=== PATIENT | female | born 1940 | race Caucasian/White ===

== ENCOUNTER 2017-07-05 17:09 | Emergency (ER) | payer OTHER ==
[~2017-07-05] VITALS: Ht 149.9 cm; Wt 47.5 kg
[~2017-07-05 17:09] MED LIST: ALTACE10 MG PO; ALTACE5 M1; CIPRO500 MG PO; CIPROFLOXACIN500 M1 PO; FLAGYL500 MG PO; GLUCOSA-CHOND-1 EACH PO; HYDROCODON-ACE1 EACH; LOMOTIL TABLET1 EACH PO; MELOXICAM7.5 MG PO; MIRALAX255 GM PO; NORCO 5-325 TA1 EACH PO; PEPCID20 MG PO; PREDNISONE 10 M10 MG PO
[2017-07-05] MEDS ORDERED: IBUPROFEN 400400 M2 PO (17:16)
[2017-07-05 17:54] LABS: ABSOLUTE BASOPHILS 0.1 thou/uL (0.0-0.2); ABSOLUTE EOSINOPHILS 0.2 thou/uL (0.0-0.7); ABSOLUTE LYMPHOCYTES 1.9 thou/uL (0.8-5.3); ABSOLUTE MONOCYTES 0.5 thou/uL (0.0-1.2); ABSOLUTE NEUTROPHILS 11.4 thou/uL (1.6-8.1); EOSINOPHILS 1.7 %; HEMATOCRIT 40.4 % (37.0-47.0); HEMOGLOBIN 12.9 gm/dL (12.0-15.0); LYMPHOCYTES 13.1 %; MCHC 31.9 g/dL (28.0-37.0); MCV 84.8 fL (80.0-100.0); MONOCYTES 3.5 %; MPV 8.1 fl. (7.2-11.1); NUCLEATED RBCS 0 /100WBC; PLATELET COUNT* 226 thou/uL (150-400); POLYS 80.7 %; RBC 4.77 mil/uL (4.20-5.00); WBC 14.2 thou/uL (4.0-11.0)
[2017-07-05 18:40] LABS: PLATELET ESTIMATE ADEQUATE
[2017-07-05 18:41] LABS: CLUMPED PLTS FEW
[2017-07-05 19:01] LABS: ALBUMIN 3.1 g/dL (3.4-5.0); ALKALINE PHOSPHATASE 298 U/L (46-116); ANION GAP 11 mmol/L (7-16); BUN 14 mg/dL (7-18); CALCIUM 8.5 mg/dL (8.5-10.1); CHLORIDE 107 mmol/L (98-107); CO2 25 mmol/L (21-32); GLUCOSE 114 mg/dL (70-99); LIPASE 119 U/L (73-393); POTASSIUM 3.8 mmol/L (3.5-5.1); SGOT 24 U/L (15-37); SGPT 16 U/L (30-65); SODIUM 143 mmol/L (136-145); TOTAL BILIRUBIN 0.4 mg/dL (<0.1-1.0); TOTAL PROTEIN 7.4 g/dL (6.4-8.2); TROPONIN-I LEVEL <0.06 ng/mL (<0.06)
[2017-07-05 21:03] LABS: URINE BLOOD 1+ (Negative); URINE CLARITY CLEAR; URINE COLOR DARK YELLOW; URINE GLUCOSE-RANDOM NEGATIVE (Negative); URINE KETONES NEGATIVE (Negative); URINE NITRITE-REFLEX NEGATIVE (Negative); URINE PROTEIN TRACE (Negative); URINE UROBILINOGEN 0.2 E.U./dl (0.2-1.0)
[2017-07-05 21:04] LABS: URINE BILIRUBIN 1+ (Negative); URINE LEUKOCYTES-REFLEX 2+ (Negative)
[2017-07-05 21:05] LABS: ICTOTEST (BILI CONFIRMATORY) Negative (Negative)
[2017-07-05] MEDS ORDERED: LEVAQUIN 500 M500 M2 PO (21:09)
[2017-07-05] MEDS ORDERED: LOPERAMIDE 2 MG2 M1 PO (21:10)
[2017-07-05 21:19] LABS: BACTERIA-REFLEX >30 Many /HPF (None Seen); COARSE GRANULAR CASTS 0-3 Few /LPF (None Seen); CRYSTALS None Seen /LPF (None Seen); FINE GRANULAR CASTS 0-3 Few /LPF (None Seen); HYALINE CASTS 0-3 Few /LPF (None Seen); MUCUS 4-6 Moderate strn/LPF (None Seen); SQUAMOUS 0-3 Few /LPF (0-3); URINE WBC-REFLEX >25 Many /HPF (0-5); WBC CLUMPS Moderate (None Seen)
[2017-07-05] MEDS ORDERED: ZOFRAN ODT4 MG PO (21:21)
[2017-07-05 22:00] VITALS: BP 118/52
== END 2017-07-05 22:03 | disposition home or self-care (01) ==
LOC: M.ERS 17:09
PROVIDERS: Physician Assistant
DX: N39.0 Urinary tract infection, site not specified (principal); R19.7 Diarrhea, unspecified; I10 Essential (primary) hypertension; Z96.653 Presence of artificial knee joint, bilateral; Z88.0 Allergy status to penicillin; Z88.1 Allergy status to other antibiotic agents; Z88.8 Allergy status to other drugs, medicaments and biological substances; Z91.041 Radiographic dye allergy status

== ENCOUNTER 2017-11-22 15:15 | Emergency (ER) | payer OTHER ==
[~2017-11-22] VITALS: Ht 149.9 cm; Wt 43.1 kg
[~2017-11-22 15:15] MED LIST changes: +IBUPROFEN 400400 M2 PO; +LEVAQUIN 500 M500 M2 PO; +LOPERAMIDE 2 MG2 M1 PO; +ZOFRAN ODT4 MG PO
[2017-11-22] MEDS ORDERED: ZITHROMAX TRI-500 MG PO (15:37)
[2017-11-22] MEDS ORDERED: EYE DROP15 ML OPHTHALMIC (15:38)
[2017-11-22] MEDS ORDERED: CLEOCIN HCL300 MG PO (17:31)
[2017-11-22 17:39] VITALS: BP 176/89
== END 2017-11-22 17:39 | disposition home or self-care (01) ==
LOC: M.ERS 15:15
DX: S02.2XXA Fracture of nasal bones, initial encounter for closed fracture (principal); I10 Essential (primary) hypertension; Z96.653 Presence of artificial knee joint, bilateral; Z88.2 Allergy status to sulfonamides; Z91.041 Radiographic dye allergy status; Z88.0 Allergy status to penicillin; Z88.8 Allergy status to other drugs, medicaments and biological substances; W01.0XXA Fall on same level from slipping, tripping and stumbling without subsequent striking against object, initial encounter; Y93.89 Activity, other specified; Y92.89 Other specified places as the place of occurrence of the external cause; Y99.8 Other external cause status

== ENCOUNTER 2018-07-27 21:18 | Emergency (ER) | payer OTHER ==
[~2018-07-27] VITALS: Ht 149.9 cm; Wt 42.6 kg
[~2018-07-27 21:18] MED LIST changes: +CLEOCIN HCL300 MG PO; +EYE DROP15 ML OPHTHALMIC; +ZITHROMAX TRI-500 MG PO
[2018-07-27] MEDS ORDERED: VIBRAMYCIN50 MG/5 ML PO (21:55)
[2018-07-27 22:35] VITALS: BP 106/70
== END 2018-07-27 22:37 | disposition home or self-care (01) ==
LOC: M.ERS 21:18
DX: L03.116 Cellulitis of left lower limb (principal); I10 Essential (primary) hypertension; Z96.653 Presence of artificial knee joint, bilateral; Z88.2 Allergy status to sulfonamides; Z88.0 Allergy status to penicillin; Z88.8 Allergy status to other drugs, medicaments and biological substances

== ENCOUNTER 2018-11-12 13:43 | Emergency (ER) | payer OTHER ==
[~2018-11-12] VITALS: Ht 149.9 cm; Wt 43.5 kg
[~2018-11-12 13:43] MED LIST changes: +COLACE100 MG PO; +HYDROCODON-ACE1 EAC7 PO; +MICONAZOLE NITR45 GM TOP; +MINOCIN50 MG PO; +MIRALAX17 GM PO; +PERCOCET PO; +TYLENOL325 MG PO; +VIBRAMYCIN50 MG/5 ML PO
[2018-11-12 15:16] VITALS: BP 123/78
== END 2018-11-12 15:17 | disposition home or self-care (01) ==
LOC: M.ERS 13:43
DX: L03.116 Cellulitis of left lower limb (principal); I10 Essential (primary) hypertension; Z96.653 Presence of artificial knee joint, bilateral; Z98.49 Cataract extraction status, unspecified eye; Z88.1 Allergy status to other antibiotic agents; Z88.0 Allergy status to penicillin; Z88.2 Allergy status to sulfonamides; Z91.040 Latex allergy status; Z91.041 Radiographic dye allergy status; Z91.048 Other nonmedicinal substance allergy status; Z88.8 Allergy status to other drugs, medicaments and biological substances

== ENCOUNTER 2019-08-06 19:47 | Emergency (ER) | payer OTHER ==
[~2019-08-06] VITALS: Ht 147.3 cm; Wt 38.6 kg
[~2019-08-06 19:47] MED LIST changes: +TRIPLE ANTIBI28.4 G2 TOP; +[UNRECOGNIZED DRUG - OTHER] PO
[2019-08-06] MEDS ORDERED: NORCO 5-325 TA1 EAC1 PO (20:16)
[2019-08-06 21:02] VITALS: BP 130/69
== END 2019-08-06 21:03 | disposition home or self-care (01) ==
LOC: M.ERS 19:47
DX: S51.811A Laceration without foreign body of right forearm, initial encounter (principal); S51.812A Laceration without foreign body of left forearm, initial encounter; I10 Essential (primary) hypertension; Z96.653 Presence of artificial knee joint, bilateral; Z91.040 Latex allergy status; Z88.0 Allergy status to penicillin; Z88.1 Allergy status to other antibiotic agents; Z88.2 Allergy status to sulfonamides; Z88.8 Allergy status to other drugs, medicaments and biological substances; V89.2XXA Person injured in unspecified motor-vehicle accident, traffic, initial encounter; Y93.89 Activity, other specified; Y92.89 Other specified places as the place of occurrence of the external cause; Y99.8 Other external cause status

== ENCOUNTER 2019-11-11 15:15 | Emergency (ER) | payer OTHER ==
[~2019-11-11] VITALS: Ht 149.9 cm; Wt 43.1 kg
[~2019-11-11 15:15] MED LIST changes: +NORCO 5-325 TA1 EAC1 PO
[2019-11-11 17:20] LABS: URINE BILIRUBIN NEGATIVE (Negative); URINE BLOOD 3+ (Negative); URINE CLARITY SL HAZY; URINE COLOR YELLOW; URINE GLUCOSE-RANDOM NEGATIVE (Negative); URINE KETONES NEGATIVE (Negative); URINE LEUKOCYTES-REFLEX 2+ (Negative); URINE NITRITE-REFLEX POSITIVE (Negative); URINE PROTEIN 2+ (Negative); URINE SPECIFIC GRAVITY 1.025 (1.005-1.030)
[2019-11-11 17:27] LABS: BACTERIA-REFLEX >30 Many /HPF (None Seen); URINE WBC-REFLEX >25 Many /HPF (0-5)
[2019-11-11 17:28] LABS: MUCUS 0-3 Light strn/LPF (None Seen)
[2019-11-11 17:29] LABS: SQUAMOUS 4-10 Moderate /LPF (0-3); WBC CLUMPS Few (None Seen)
[2019-11-11 17:33] LABS: CRYSTALS None Seen /LPF (None Seen); HYALINE CASTS 0-3 Few /LPF (None Seen); URINE RBC 3-10 Few /HPF (0-2)
[2019-11-11] MEDS ORDERED: MACROBID 100 M100 M1 PO (17:43)
[2019-11-11 18:08] VITALS: BP 134/85
== END 2019-11-11 18:09 | disposition home or self-care (01) ==
LOC: M.ERS 15:15
PROVIDERS: Personal Emergency Response Attendant
DX: Z46.6 Encounter for fitting and adjustment of urinary device (principal); I10 Essential (primary) hypertension; Z91.040 Latex allergy status; Z88.1 Allergy status to other antibiotic agents; Z88.0 Allergy status to penicillin; Z88.2 Allergy status to sulfonamides; Z88.8 Allergy status to other drugs, medicaments and biological substances; Z96.653 Presence of artificial knee joint, bilateral

== ENCOUNTER 2020-10-24 15:02 | Observation (INO) | payer OTHER ==
[~2020-10-24] VITALS: Ht 149.9 cm; Wt 43.1 kg
[~2020-10-24 15:02] MED LIST changes: +BACITRACIN ZINC14 GM TOP; +KEFLEX500 M1 PO; +LMX 430 GM TOP; +MACROBID 100 M100 M1 PO; +NORCO 5-325 TA1 EAC2 PO; +PLAVIX 75 MG TA75 M1 PO; +TRAMADOL 50 MG50 MG PO; +TRIAMCINOLONE A80 GM TOP
[2020-10-24 15:10] VITALS: BP 103/56
[2020-10-24] MEDS ORDERED: VAZALORE81 MG PO (15:14)
[2020-10-24 16:45] LABS: ABSOLUTE LYMPHOCYTES 0.7 thou/uL (0.8-5.3); ABSOLUTE MONOCYTES 0.3 thou/uL (0.0-1.2); BASOPHILS 0.4 %; HEMATOCRIT 41.6 % (37.0-47.0); HEMOGLOBIN 13.1 gm/dL (12.0-15.0); LYMPHOCYTES 18.1 %; MCH 27.3 pg (26.0-34.0); MCHC 31.4 g/dL (28.0-37.0); MCV 86.9 fL (80.0-100.0); MONOCYTES 7.5 %; MPV 7.5 fl. (7.2-11.1); NUCLEATED RBCS 0 /100WBC; PLATELET COUNT* 118 thou/uL (150-400); RBC 4.79 mil/uL (4.20-5.00); RDW-CV 19.3 % (10.5-14.5)
[2020-10-24 16:59] LABS: CALCIUM 7.9 mg/dL (8.5-10.1); CREATININE 0.8 mg/dL (0.6-1.3)
[2020-10-24 17:03] LABS: ALBUMIN 3.4 g/dL (3.4-5.0); MAGNESIUM 1.9 mg/dL (1.8-2.4); POTASSIUM 3.5 mmol/L (3.5-5.1); TOTAL BILIRUBIN 0.4 mg/dL (<0.1-1.0); TOTAL PROTEIN 6.9 g/dL (6.4-8.2)
--- NOTE | 2020-10-24 17:14 | EKG ---
[place] [address] ELECTROCARDIOGRAM REPORT Name: JUANA ANN Room: [facility]#: [id number] Admission: 10/24/20 Attend Phys: Discharge: Date of : 40 Date of Service: 10/24/20 1637 Report #: [id number] THIS REPORT FOR: //name// [facility] ED Test Date: 2020-10-24 Test Time: 16:37:01 Pat Name: JUANA ANN Department: Room: Gender: Saw Cleaner: : 1940 Requested By: Maggie Harding Order Number: [id number] MD: Mook Pham Measurements Intervals [place] Rate: 88 P: 0 [place]: 173 QRS: 164 QRSD: 130 T: -4 QT: 399 QTc: 483 Interpretive Statements Sinus rhythm Right bundle branch block with right axis deviation Lateral infarct, age indeterminate cannot be excluded Compared to ECG 09/22/2014 19:48:34 Electronically Signed On 10-24-2020 17:14:05 CDT by Mook Pham [email or web address] <ELECTRONICALLY SIGNED> By: Mook Pham MD, FACC 10/24/20 1714 1637 1637 Mook Pham MD, [facility] /EPI
[2020-10-24 19:25] LABS: URINE BILIRUBIN NEGATIVE (Negative); URINE BLOOD 1+ (Negative); URINE CLARITY CLEAR; URINE COLOR YELLOW; URINE GLUCOSE-RANDOM NEGATIVE (Negative); URINE KETONES 2+ (Negative); URINE NITRITE-REFLEX NEGATIVE (Negative); URINE PROTEIN 1+ (Negative); URINE SPECIFIC GRAVITY 1.025 (1.005-1.030); URINE UROBILINOGEN 0.2 E.U./dl (0.2-1.0)
[2020-10-24 19:29] LABS: URINE LEUKOCYTES-REFLEX 2+ (Negative)
[2020-10-24 19:30] LABS: BACTERIA-REFLEX 1-9 Few /HPF (None Seen); CASTS None Seen /LPF (None Seen); CRYSTALS None Seen /LPF (None Seen); MUCUS 0-3 Light strn/LPF (None Seen); SQUAMOUS 4-10 Moderate /LPF (0-3); URINE RBC 0-2 Rare /HPF (0-2); URINE WBC-REFLEX 6-15 Few /HPF (0-5)
[2020-10-24 22:16] VITALS: BP 129/63
[2020-10-24 23:28] VITALS: BP 134/74
[2020-10-25 02:36] VITALS: BP 150/60
[2020-10-25 05:28] VITALS: BP 128/62
[2020-10-25 09:54] VITALS: BP 105/47
--- NOTE | 2020-10-25 12:28 | NUR ---
PROVIDER NOTIFIED OF PT'S DAUGHTER REQUESTING FOR WOUND CARE TO COME AND EVALUATE PT'S L CALF WOUND R/T HOME HEALTH WOUND CARE SUPPOSED TO COME AND REDRESS TOMORROW.
[2020-10-25 14:20] VITALS: BP 115/59
[2020-10-25 15:38] VITALS: BP 119/61
[2020-10-25 16:35] VITALS: BP 119/61
--- NOTE | 2020-10-25 16:53 | 2DMMODE ---
[place] [address] 2 D/M-MODE ECHOCARDIOGRAM Name: JUANA ANN Room: [address] Jame#: [id number] Admission: 10/24/20 Attend Phys: Jp Steinberg, Discharge: Date of : 40 Date of Service: 10/25/20 1652 Report #: [id number] THIS REPORT FOR: cc: Nicola Whitt Kent DO [place],Yaakov Pederson MD [facility] ~ APPROVED REPORT Study performed: 10/25/2020 13:50:30 EXAM: Comprehensive 2D, Doppler, and color-flow Echocardiogram Patient Location: In-Patient Room #: ER Status: routine BSA: 1.34 HR: 82 bpm BP: 105/47 mmHg Rhythm: NSR Other Information Study Quality: Good Indications Murmur 2D Dimensions IVSd: 9.75 (7-11mm) LVOT Diam: 18.65 (18-24mm) LVDd: 34.17 mm PWd: 8.25 (7-11mm) Ascending Ao: 31.60 (22-36mm) LVDs: 18.20 (25-40mm) Aortic Root: 25.13 mm Volumes Left Atrial Volume (Systole) LA ESV Index: 37.30 mL/m2 Aortic Valve AoV Peak Charbel.: 2.48 m/s AO Peak Gr.: 24.62 mmHg LVOT Max P.80 mmHg AO Mean Gr.: 13.44 mmHg LVOT Mean P.06 mmHg LVOT Max V: 1.20 m/s AO V2 VTI: 45.81 cm LVOT Mean V: 0.82 m/s BALDO (VTI): 1.41 cm2 LVOT V1 VTI: 23.65 [place] [address] 2 D/M-MODE ECHOCARDIOGRAM Name: JUANA ANN Room: [address]#: [id number] Admission: 10/24/20 Attend Phys: Jp Steinberg, Discharge: Date of : 40 Date of Service: 10/25/20 1652 Report #: [id number] Mitral Valve MV Mean Gr.: 2.75 mmHg E/A Ratio: 2.27 MV Decel. Time: 350.99 ms MV E Max Charbel.: 1.39 m/s MV PHT: 101.79 ms MVA (PHT): 2.16 cm2 TDI E/Lateral E': 11.58 E/Medial E': 19.86 Medial E' Charbel.: 0.07 m/s Lateral E' Charbel.: 0.12 m/s Pulmonary Valve PV Peak Charbel.: 0.92 m/s PV Peak Gr.: 3.36 mmHg Tricuspid Valve RAP Estimate: 5.00 mmHg TR Peak Gr.: 29.18 mmHg RVSP: 34.00 mmHg PA Pressure: 34.00 mmHg Left Ventricle The left ventricle is normal size. There is normal LV segmental wall motion. There is normal left ventricular wall thickness. Left ventricular systolic function is normal. LVEF is 60-65%. Transmitral Doppler flow pattern suggests restrictive physiology. Right Ventricle The right ventricle is normal size. The right ventricular systolic function is normal. Atria Left atrium is moderately dilated. The right atrium size is normal. Aortic Valve Moderate aortic valve sclerosis. No aortic regurgitation is present. Moderate aortic stenosis. Mitral Valve There is mitral annular calcification. Mild mitral regurgitation. No evidence of mitral valve stenosis. Tricuspid Valve The tricuspid valve is normal in structure. Mild tricuspid regurgitation[place] [address] 2 D/M-MODE ECHOCARDIOGRAM Name: JUANA ANN Room: [address]#: [id number] Admission: 10/24/20 Attend Phys: Jp Steinberg, Discharge: Date of : 40 Date of Service: 10/25/20 1652 Report #: [id number] Pulmonic Valve The pulmonary valve is normal in structure. Trace pulmonic regurgitation. Great Vessels The aortic root is normal in size. IVC is normal in size and collapses >50% with inspiration. Pericardium There is no pericardial effusion. <Conclusion> The left ventricle is normal size. There is normal left ventricular wall thickness. Left ventricular systolic function is normal. LVEF is 60-65%. Transmitral Doppler flow pattern suggests restrictive physiology. There is normal LV segmental wall motion. Left atrium is moderately dilated. Moderate aortic valve sclerosis. Moderate aortic stenosis. There is mitral annular calcification. Mild mitral regurgitation. Mild tricuspid regurgitation. Mild pulmonary hypertension. IVC is normal in size and collapses >50% with inspiration. <ELECTRONICALLY SIGNED> By: Yaakov Lugo MD, FACC 10/25/201651 51 51 Yaakov Lugo MD, FACC /INF
== END 2020-10-25 16:40 | disposition home or self-care (01) ==
LOC: M.ERS 15:02 → M.TBA-ER 19:34
PROVIDERS: Nurse Practitioner Family; ADMIT Internal Medicine; ATTEND Internal Medicine
DX: U07.1 COVID-19 (principal); E87.1 Hypo-osmolality and hyponatremia; R77.8 Other specified abnormalities of plasma proteins; R53.1 Weakness; E86.0 Dehydration; I10 Essential (primary) hypertension; I73.9 Peripheral vascular disease, unspecified; Z79.82 Long term (current) use of aspirin; Z79.899 Other long term (current) drug therapy

== ENCOUNTER 2020-10-27 10:14 | Inpatient (IN) | payer OTHER ==
[~2020-10-27] VITALS: Ht 149.9 cm; Wt 43.9 kg
--- NOTE | ~2020-10-27 | PROC ---
[address] [address] PROCEDURE REPORT Name: JUANA ANN Room: [address] IN ..#: [id number] Admission: 10/27/20 Attend Phys: Jp Steinberg MD Discharge: Date of : 40 Report #: [id number] THIS REPORT FOR: cc: Nicola Whitt Kent DO [facility],Medical Records Staff ~ For GI report, please see the Provation report in Perceptive 7 content. By: 0659Medical Records Staff GRAYSON /DANYELLE
[~2020-10-27 10:14] MED LIST changes: +VAZALORE81 MG PO
[2020-10-27 10:15] VITALS: BP 126/72
[2020-10-27 10:47] LABS: ABSOLUTE LYMPHOCYTES 0.9 thou/uL (0.8-5.3); ABSOLUTE MONOCYTES 0.3 thou/uL (0.0-1.2); ABSOLUTE NEUTROPHILS 4.9 thou/uL (1.6-8.1); BASOPHILS 0.5 %; HEMATOCRIT 41.9 % (37.0-47.0); HEMOGLOBIN 13.5 gm/dL (12.0-15.0); MCH 27.5 pg (26.0-34.0); MCHC 32.2 g/dL (28.0-37.0); MCV 85.3 fL (80.0-100.0); MONOCYTES 4.6 %; MPV 7.6 fl. (7.2-11.1); NUCLEATED RBCS 0 /100WBC; PLATELET COUNT* 150 thou/uL (150-400); POLYS 79.9 %; RBC 4.91 mil/uL (4.20-5.00); RDW-CV 19.2 % (10.5-14.5); WBC 6.1 thou/uL (4.0-11.0)
[2020-10-27 11:25] LABS: CREATININE 0.8 mg/dL (0.6-1.3); POTASSIUM 3.7 mmol/L (3.5-5.1)
[2020-10-27 11:30] LABS: ALBUMIN 2.9 g/dL (3.4-5.0); TOTAL BILIRUBIN 0.5 mg/dL (<0.1-1.0); TOTAL PROTEIN 6.6 g/dL (6.4-8.2)
--- NOTE | 2020-10-27 16:21 | EKG ---
[place] [address] ELECTROCARDIOGRAM REPORT Name: BRYANJUANA Lala Room: [place] [address] ADM IN [facility].#: [id number] Admission: 10/27/20 Attend Phys: Jp Steinberg, Discharge: Date of : 40 Date of Service: 10/27/20 1016 Report #: [id number] THIS REPORT FOR: //name// [facility] ED Test Date: 2020-10-27 Test Time: 10:16:53 Pat Name: JUANA ANN Department: Room: [facility] Gender: F Purchasing Expeditor: CHARLI : 1940 Requested By: Ajit Carranza Order Number: [id number] MD: Mook Pham Measurements Intervals [place] Rate: 154 P: 0 [place]: 31 QRS: 170 QRSD: 122 T: 5 QT: 325 QTc: 520 Interpretive Statements Wide-QRS tachycardia suggesting a supraventricular tachycardia with aberrant conduction Right bundle branch block Compared to ECG 10/24/2020 16:37:01 Sinus rhythm no longer present; supraventricular arrhythmia is noted Electronically Signed On 10-27-2020 16:21:48 CDT by Mook Pham [email or web address] <ELECTRONICALLY SIGNED> By: Mook Pham MD, FACC 10/27/20 1621 1016 1016 Mook Pham MD, FAC /EPI
[2020-10-27 17:14] LABS: BE -5.9 mmol/L (-2 to +3); PCO2 32.8 mmHg (35.0-45.0); PO2 67.9 mmHg (75.0-100.0); pH 7.367 (7.340-7.450)
[2020-10-27 18:53] VITALS: BP 101/42
[2020-10-27 23:00] VITALS: BP 99/65
[2020-10-28] VITALS (7 sets, daily range): BP systolic 115–137; BP diastolic 45–68
[2020-10-28 05:19] LABS: HEMATOCRIT 42.4 % (37.0-47.0); HEMOGLOBIN 13.6 gm/dL (12.0-15.0); MCH 27.4 pg (26.0-34.0); MCHC 32.1 g/dL (28.0-37.0); MCV 85.4 fL (80.0-100.0); MPV 7.6 fl. (7.2-11.1); NUCLEATED RBCS 0 /100WBC; PLATELET COUNT* 178 thou/uL (150-400); RBC 4.96 mil/uL (4.20-5.00); RDW-CV 19.3 % (10.5-14.5); WBC 7.5 thou/uL (4.0-11.0)
[2020-10-28 05:59] LABS: CALCIUM 8.3 mg/dL (8.5-10.1); CREATININE 0.8 mg/dL (0.6-1.3)
[2020-10-28 08:29] LABS: ABSOLUTE LYMPHOCYTES 0.1 thou/uL (0.8-5.3); ABSOLUTE MONOCYTES 0.5 thou/uL (0.0-1.2); PLATELET ESTIMATE ADEQUATE
--- NOTE | 2020-10-28 10:21 | NUR ---
Infection Prevention: Per [facility] patient has a positive Covid PCR test on 10/20/20.
--- NOTE | 2020-10-28 11:59 | NUR ---
PT IS BOARDING IN ED WITH NEMO BEST. CM COMPLETED PHONE ASSESSMENT WITH PT JAY NGUYEN, PT DTR, SKYLER OR SON, DON LUCAS" DID NOT ANSWER PHONE. PER JAY, PT LIVES HOME ALONE. PT USES A CANE, PT IS RECEIVING WOUND CARE FOR "WOUND ON HER LEG" FROM . JAY WAS UNSURE OF AGENCY AND RECOMMEDNDED CM CONTACT PT 'S DTR SKYLER.
--- NOTE | 2020-10-28 14:31 | NUR ---
CM REALTY SPECIALIST REVIEW on 10-28-20 and agree that Note can be placed in the MEDICAL RECORD - Javad Carroll RN 10-28-20: 79 year old female presents to the ED at [facility] on 10-24-20 with complaints of lightheadeness, generalized weakness, +COVID- 19 (diagnosed on 10-22-20) and dehydration. The patient reports to MD is unvaccinated. Per ED triage assessment the patient is listed as not vaccinated. COVID STAT ANTIGEN in the ED resulted in "Not Detected". The patient was admitted with: Hyponatremia - Elevated troponin - Abnormal UA - Generalized weakness - Dehydration and COVID-19 testing positive on 10-22-20. Patient reports she is her own guardian but lists her daughter Bibiana Encarnacion at [phone] as her family contact. But also lists Son Rene Mckenzie at [phone] and PATRICK Caryl at [phone] at [phone]. As plan of care is developed by MD's CM will assist if needed for discharge needs that should arise
[2020-10-28 14:33] LABS: URINE BILIRUBIN NEGATIVE (Negative); URINE BLOOD 1+ (Negative); URINE CLARITY CLEAR; URINE COLOR YELLOW; URINE GLUCOSE-RANDOM NEGATIVE (Negative); URINE KETONES 2+ (Negative); URINE LEUKOCYTES-REFLEX 1+ (Negative); URINE NITRITE-REFLEX NEGATIVE (Negative); URINE PROTEIN 1+ (Negative); URINE SPECIFIC GRAVITY 1.025 (1.005-1.030); URINE UROBILINOGEN 0.2 E.U./dl (0.2-1.0)
[2020-10-28 14:34] LABS: CASTS None Seen /LPF (None Seen); CRYSTALS None Seen /LPF (None Seen); SQUAMOUS 0-3 Few /LPF (0-3); URINE RBC 0-2 Rare /HPF (0-2); URINE WBC-REFLEX 0-5 Rare /HPF (0-5)
--- NOTE | 2020-10-28 14:34 | EKG ---
[place] [address] ELECTROCARDIOGRAM REPORT Name: BRYANJUANA Lala Gareth Room: [address] ADM IN [facility].#: [id number] Admission: 10/27/20 Attend Phys: Jp Steinberg, Discharge: Date of : 40 Date of Service: 10/27/20 2350 Report #: [id number] THIS REPORT FOR: //name// [facility] ED Test Date: 2020-10-27 Test Time: 23:50:30 Pat Name: JUANA ANN Department: Room: [facility] Gender: F Meeting Manager: [facility] : 1940 Requested By: Ajit Carranza Order Number: [id number] Reading MD: Mook Pham Measurements Intervals [place] Rate: 68 P: 61 [place]: 181 QRS: 169 QRSD: 136 T: -8 QT: 436 QTc: 464 Interpretive Statements Sinus rhythm Right bundle branch block Lateral infarct, age indeterminate Compared to ECG 10/27/2020 10:16:53 Myocardial infarct finding now present Supraventricular tachycardia no longer present Electronically Signed On 10-28-2020 14:34:43 CDT by Mook Pham [email or web address] <ELECTRONICALLY SIGNED> By: Mook Pham MD, FAC 10/28/20 1434 2350 2350 Mook Pham MD, FAC /EPI
--- NOTE | 2020-10-28 14:56 | NUR ---
The patient admitted to 111. Alert and able to make needs known. SR on the monitor. Call light within reach. NPO. Dentures in the room. Voids using the bedpan.
[2020-10-29 00:25] VITALS: BP 131/59
[2020-10-29 02:45] VITALS: BP 136/69
[2020-10-29 04:29] VITALS: BP 136/69
[2020-10-29 05:34] LABS: ABSOLUTE LYMPHOCYTES 0.9 thou/uL (0.8-5.3); ABSOLUTE MONOCYTES 0.4 thou/uL (0.0-1.2); ABSOLUTE NEUTROPHILS 5.8 thou/uL (1.6-8.1); BASOPHILS 0.1 %; HEMATOCRIT 35.8 % (37.0-47.0); HEMOGLOBIN 11.8 gm/dL (12.0-15.0); LYMPHOCYTES 12.1 %; MCH 27.4 pg (26.0-34.0); MCHC 32.8 g/dL (28.0-37.0); MCV 83.4 fL (80.0-100.0); MONOCYTES 5.9 %; MPV 7.9 fl. (7.2-11.1); NUCLEATED RBCS 0 /100WBC; PLATELET COUNT* 157 thou/uL (150-400); POLYS 81.9 %; RDW-CV 18.6 % (10.5-14.5); WBC 7.1 thou/uL (4.0-11.0)
[2020-10-29 06:27] LABS: ALBUMIN 2.3 g/dL (3.4-5.0); CREATININE 0.8 mg/dL (0.6-1.3); TOTAL BILIRUBIN 0.5 mg/dL (<0.1-1.0); TOTAL PROTEIN 5.8 g/dL (6.4-8.2)
[2020-10-29 06:29] LABS: POTASSIUM 2.8 mmol/L (3.5-5.1)
--- NOTE | 2020-10-29 07:10 | NUR ---
CHANGE OF SHIFT REPORT GIVEN PATIENT SEEN AT BEDSIDE, IN BED RESTING ASSUMED PATIENT CARE
[2020-10-29 08:00] VITALS: BP 100/44
[2020-10-29 09:35] LABS: MAGNESIUM 1.8 mg/dL (1.8-2.4); PHOSPHORUS* 2.2 mg/dL (2.5-4.9)
[2020-10-29 16:00] VITALS: BP 10/48
[2020-10-29 20:15] VITALS: BP 131/76
[2020-10-30 00:30] VITALS: BP 102/60
--- NOTE | 2020-10-30 04:08 | NUR ---
ASSUMED PT CARE AT APPROX 1930. PT IS A/OX4. PT IS VERY ANXIOUS. VSS. PT IS TRACING SR BBB ON MANAGER PORTABLE. PT HAS A NPC W/ VERY LITTLE EFFORT TO COUGH. PT IS ON 2LNC. O2 SATS 98-100%. PT HAS A RIGHT CHEST PORT, SINGLE LUMEN. PT IS ORDERED A FULL LIQUID DIET R/T PMH OF ESOPHAGEAL STRICTURES. PT STATED SHE "IS ONLY SUPPOSE TO DRINK PEPSI. NO WATER. HER FAMILY DOCTOR TOLD HER THIS." PT TAKES HER PILLS CRUSHED IN CHOCOLATE PUDDING. PT HAS A WOUND ON LEFT LOWER EXTREMITY W/ DRESSING COVERING. PT REFUSED TO ALLOW RN TO LOOK AT LOWER EXTREMITIES. PT SAID, "DON'T WORRY ABOUT THAT, IT HAS BEEN TAKEN CARE OF." PT REPORTED PAIN IN NECK AND BACK. MEDICATION ADMINISTERED PRESCRIBED. PT'S DAUGHTER KESHA CALLED AND SPOKE W/ THIS RN REGARDING HER MOTHERS PLAN OF CARE. KESHA VOICED CONCERNS THAT "HER MOM WOULD BE DISCHARGED AT SOME POINT AND STILL BE COVID POSITIVE. AND THAT WOULD AFFECT HER ABILITY TO GO TO WORK D/T BEING AROUND HER MOTHER." PT DAUGHTER KESHA STATED, "THE NURSING STAFF TOLD ME EARLIER TODAY THAT MY MOM WOULD NOT GET A COVID TEST BEFORE GOING HOME. CAN I BRING IN A COVID TEST AND TEST HER AND SEND IT TO MY WORK LAB?" RN DISCUSSED THAT LONG THE PATIENTS SYMPTOMS HAVE IMPROVED AND THE INTERDISCIPLINARY TEAM THINKS SHE HAS IMPROVED AND DOES NOT REQUIRE HOSPITALIZATION SHE COULD GO HOME AND STILL TEST POSITIVE FOR COVID. RN STATED THERE HAS NOT BEEN A DISCUSSION ABOUT HER MOMS DISCHARGE YET. PT DAUGHTER WAS ANXIOUS ON THE PHONE AND ASKED IF HER MOM RECEIVED HER PEPSI AND PUDDING. SPOKE WITH PTS DAUGHTER FOR APPROX. 20 MIN ON THE PHONE. HOURLY ROUNDS COMPLETE CHARTED. FALL PRECAUTIONS IN PLACE FOR SAFETY. CALL LIGHT WITHIN REACH. NO ACUTE CHANGES THIS SHIFT. WILL CONT. TO MONITOR.
[2020-10-30 04:15] VITALS: BP 151/65
--- NOTE | 2020-10-30 07:10 | NUR ---
CHANGE OF SHIFT REPORT GIVEN PATIENT SEEN AT BEDSIDE, IN BED ASLEEP ASSUMED PATIENT CARE
[2020-10-30 08:00] VITALS: BP 152/72
--- NOTE | 2020-10-30 09:00 | EKG ---
[place] [address] ELECTROCARDIOGRAM REPORT Name: BRYANESTEFANI LalaJOSIE Servin Room: [address] ADM IN .R.#: [id number] Admission: 10/27/20 Attend Phys: Jp Steinberg, Discharge: Date of : 40 Date of Service: 10/29/20912 Report #: [id number] THIS REPORT FOR: //name// [facility] Test Date: 2020-10-29 Test Time: 09:13:03 Pat Name: JUANA ANN Department: Room: [address] Gender: F Communication Professor: YOUNG : 1940 Requested By: Dilcia Marcial Order Number: [id number] Reading MD: Phi Sarabia Measurements Intervals [place] Rate: 67 P: 90 DC: 168 QRS: 165 QRSD: 135 T: -13 QT: 443 QTc: 468 Interpretive Statements Incomplete analysis due to missing data in precordial lead(s) Sinus rhythm Right bundle branch block Lateral infarct, age indeterminate Missing lead(s): V5 Compared to ECG 10/27/2020 23:50:30 No significant changes Electronically Signed On 10-30-2020 9:00:01 CDT by Phi Sarabia [email or web address] <ELECTRONICALLY SIGNED> By: hPi Sarabia MD, [facility] 10/30/20899 2 2 Phi Sarabia MD, [facility] /EPI
--- NOTE | 2020-10-30 10:59 | CON ---
[address] [address] CONSULTATION Name: JUANA ANN Room: [address] IN M.R.#: [id number] Admission: 10/27/20 Attend Phys: Jp Steinberg MD Discharge: Date of : 40 Report #: [id number] THIS REPORT FOR: cc: Nicola Whitt Kent DO Namin, Farid M. MD ~ cc: Dr. Nicola Shaffer DATE OF CONSULTATION: 10/28/2020 REASON FOR CONSULT: Dysphagia. REQUESTING PHYSICIAN: Jp Steinberg MD HISTORY OF PRESENT ILLNESS: This is a 79-year-old female with history of COVID symptoms in the past. The patient apparently was discharged home and returned to the hospital since she continued to feel weak. She apparently reported that she had high-grade fever, but she is afebrile here. We were consulted mainly because she had reported dysphagia. The patient is a poor historian and appears a bit confused. We had called her son and tried to get some information. The patient's hemoglobin is stable around 13. There is no evidence of acute GI bleeding. PAST MEDICAL HISTORY: 1. Recent history of COVID infection. 2. History of esophageal motility disorder in the past with several dilations, which was confirmed by her son. The patient is on chronic antiplatelet agent. PAST SURGICAL HISTORY: 1. Bilateral knee replacement. 2. Cataract surgery. ALLERGIES: Please refer to MAR. MEDICATIONS: Please refer to MAR. SOCIAL HISTORY: The patient lives at home. There is no history of tobacco or alcohol use. FAMILY HISTORY: Noncontributory. PHYSICAL EXAMINATION: VITAL SIGNS: Reveals blood pressure of 115/57, respirations 18, pulse 63, temperature 36.1. [place] [address] CONSULTATION Name: JUANA ANN Room: [address]#: [id number] Admission: 10/27/20 Attend Phys: Jp Steinberg MD Discharge: Date of : 40 Report #: [id number] ABDOMEN: Soft, nontender. NEUROLOGIC: The patient is alert and oriented. She is on 4 liters of O2 and appears to be comfortable. LABORATORY DATA: Labs reveal WBC of 7.5, hemoglobin 13.6, up from 13.5 yesterday, platelet count is 178. Sodium is 140, potassium is 3.0, BUN is 13, creatinine is 0.8. AST and ALT are mildly elevated as AST level is 54 and ALT is 22. Alkaline phosphatase is 119. Troponin I is 296. The patient is COVID positive. IMAGING: Chest x-ray was obtained yesterday which showed stable multifocal pneumonia. ASSESSMENT AND PLAN: 1. Patient with COVID associated pneumonia who will be started on protocol treatment for the same. 2. As far as her dysphagia, we will order a swallow study and also a barium swallow. Meanwhile, I will allow her to have a full liquid diet until further evaluation is complete. In 10 days to 2 weeks, once she is stable, we will consider upper endoscopy to further evaluate her dysphagia and possibly dilate her esophagus. Meanwhile, we will follow up on swallow study results and barium swallow. <ELECTRONICALLY SIGNED> By: Joni Fraser MD 10/30/20 1059 1524 [id number] Fraser MD /nt
[2020-10-30 12:00] VITALS: BP 104/45
[2020-10-30 18:33] VITALS: BP 143/80
[2020-10-30 20:19] VITALS: BP 170/85
[2020-10-31] VITALS: BP 115/52
[2020-10-31 04:00] VITALS: BP 116/89
--- NOTE | 2020-10-31 06:38 | NUR ---
Patient slept most of night. This morning above sign writer letterer or painter noticed a foul smell and drainage coming out of patient's left lower leg. Upon assessment, the above nurse noted a wound which is unstagable draining pus.Wound was cleansed and a dressing placed over it and wrapped with kerlix. The patient has a wound consult on board. Daughter called this morning to check on patient. Daughter has been tested for covid and she will get her results today and will keep us posted as well. Patient was not pleased with nursing looking at her draining wound, above nurse did reassure patient that wound care will be on board to follow up. Will continue to care.
[2020-10-31 07:59] VITALS: BP 130/73
[2020-10-31 09:11] LABS: CALCIUM 8.3 mg/dL (8.5-10.1); CREATININE 0.7 mg/dL (0.6-1.3); POTASSIUM 3.9 mmol/L (3.5-5.1)
--- NOTE | 2020-10-31 10:52 | EKG ---
[place] [address] ELECTROCARDIOGRAM REPORT Name: JUANA ANN Gareth Room: [address] ADM IN .R.#: [id number] Admission: 10/27/20 Attend Phys: Jp Steinberg, Discharge: Date of : 40 Date of Service: 10/31/20 1035 Report #: [id number] THIS REPORT FOR: //name// [facility] Test Date: 2020-10-31 Test Time: 10:35:34 Pat Name: JUANA ANN Department: Room: [address] Gender: F Pigment Processor: robbie : 1940 Requested By: Dilcia Marcial Order Number: [id number] Reading MD: Phi Sarabia Measurements Intervals [place] Rate: 70 P: 32 [place]: 175 QRS: 138 QRSD: 127 T: -12 QT: 436 QTc: 471 Interpretive Statements Sinus rhythm Atrial premature complex Right bundle branch block Lateral infarct, age indeterminate Compared to ECG 10/29/2020 09:13:03 Atrial premature complex(es) now present Myocardial infarct finding still present Electronically Signed On 10-31-2020 10:52:47 CDT by Phi Sarabia [email or web address] <ELECTRONICALLY SIGNED> By: Phi Sarabia MD, FACC 10/31/20 1052 1035 1035 Phi Sarabia MD, [facility] /EPI
[2020-10-31 12:00] VITALS: BP 131/83
--- NOTE | 2020-10-31 15:56 | NUR ---
Pt medically stable to dc. Spoke with Pt's dtr, dtr and son both have covid and are unable to assist Pt at home. Dtr asked about ARU, CM explained that Pt is not a candidate for ARU at this time. Dtr hesitant about SNF, d/t a previous bad experience. Dtr became agreeable if Pt can go to [facility], since son lives in [place]. CM to contact [facility] to see if they are still taking covid positive Pts. Dtr to speak with Pt to inform of her own positive covid status and inform Pt that neither she nor son will be able to assist Pt at home. Pt will need to participate with therapies in order to get SNF auth. CM to have call dtr to discuss POC.
--- NOTE | 2020-10-31 17:22 | NUR ---
WOUND NURSE: PATIENT SEEN TO ADDRESS WOUND ON THE LATERAL ASPECT OF THE LEFT LOWER EXTREMITY MEASURING 8.2 X 5.5 X 0.1 CM. CONTAINS RED, NONGRANULATING TISSUE IN THE WOUND BED. THERE IS LIGHT YELLOW PURULENT DRAINAGE IN MODERATE AMOUNT NOTED. PATIENT REPORTS SHE IS ALLERGIC TO SALINE, BUT IS NOT ALLERGIC TO SILVER HER CHART STATES. PATIENT WEARING 2 SILVER RINGS AND WITOUT REACTION. BASED ON PATIENT INFORMATION, OPTED TO APPLY SILVER BASED DRESS TO PROMOTE HEALING AND AVOID INFECTION. MONITOR TOMORROW TO VERIFY PATIENT TOLERATING DRESSING. OBTAINED C&S AFTER CLEANSING WITH SOAP AND WATER, RINSING, THEN PATTING DRY. APPLIED OPTIFOAM GENTLE AG UNDER KERLEX UNDER JESSE WRAP. THIS WAS TOLERATED WELL BY THE PATIENT. PATIENT INSTRUCTED ON MEASURES TO PROMOTE HEALING AND FOLLOW UP TEACHING WILL BE NECESSARY.
[2020-10-31 18:37] VITALS: BP 152/81
--- NOTE | 2020-10-31 19:26 | NUR ---
PT A/O TO SELF AND PLACE, REFUSING FOOD EXCEPT REECES AND PEPSI, PT IS DIFFICULT TO UNDERSTAND AND LETHARGIC. PT REFUSED THERAPY. HER SON CALLED AND I OFFERED TO CALL HIM SO SHE COULD TALK TO HIM AND SHE REFUSED.
[2020-10-31 20:00] VITALS: BP 159/85
[2020-11-01 00:09] VITALS: BP 116/44
[2020-11-01 04:00] VITALS: BP 144/62
--- NOTE | 2020-11-01 04:41 | NUR ---
Pt. alert and oriented X2, at times confused and anxious. Pt. will at times refuse care needed such as turns and reoriented to take medications. Pt. takes meds with chocolate pudding and tolerating. Pt. denies pain through shift, Afebrile. Pt NSR with BBB on tele monitor. O2 sats above 95 on 2L NC. Rt. chest port in place, works approprately. Dressing CDI. LLE wound noted, Dressimg clean and intact. Pt. NPO after midnight for Barium study. Fall precations in place, call light within reach. All questions and concerns addressed. Will continue to monitor.
[2020-11-01 07:30] VITALS: BP 144/90
--- NOTE | 2020-11-01 09:08 | NUR ---
WOUND NURSE: FOLLOWED UP WITH PATIENT BY REMOVING AND REAPPLYING DRESSING TO LLE. PATIENT IS NOT REACTING TO SILVER CONTENT OF OPTIFOAM GENTLE AG. NOTED SOME UNDERMINIG ALONG THE POSTERIOR ASPECT OF THE WOUND WHICH WAS NOT NOTED YESTERDAY. SMALL AMOUNT OF PURULENT DRAINAGE NOTED ON THE DRESSING. WOUND IS MOIST AND RED, NO PERIWOUND REDNESS, WARMTH, OR INDURATION IS PRESENT. NO ODOR IS APPARENT. WILL CONTINUE WITH CURRENT POT. MAY CONSIDER PURACHOL PLUS AG TO AREA OF UNDERMING IF TOLERATES CURRENT WOUND CARE.
[2020-11-01 10:18] LABS: HEMATOCRIT 38.6 % (37.0-47.0); HEMOGLOBIN 12.5 gm/dL (12.0-15.0); MCH 27.3 pg (26.0-34.0); MCHC 32.4 g/dL (28.0-37.0); MPV 8.1 fl. (7.2-11.1); NUCLEATED RBCS 0 /100WBC; PLATELET COUNT* 195 thou/uL (150-400); RBC 4.59 mil/uL (4.20-5.00); RDW-CV 19.3 % (10.5-14.5); WBC 11.6 thou/uL (4.0-11.0)
[2020-11-01 10:31] LABS: ALBUMIN 2.6 g/dL (3.4-5.0); CALCIUM 7.9 mg/dL (8.5-10.1); CREATININE 0.7 mg/dL (0.6-1.3); POTASSIUM 3.2 mmol/L (3.5-5.1); TOTAL BILIRUBIN 0.8 mg/dL (<0.1-1.0)
[2020-11-01 10:59] LABS: ABSOLUTE LYMPHOCYTES 0.7 thou/uL (0.8-5.3); ABSOLUTE MONOCYTES 0.6 thou/uL (0.0-1.2); ABSOLUTE NEUTROPHILS 10.3 thou/uL (1.6-8.1); ATYPICAL LYMPHS 1 %; PLATELET ESTIMATE ADEQUATE
[2020-11-01 12:00] VITALS: BP 106/64
--- NOTE | 2020-11-01 15:34 | NUR ---
spoke with dtr, dtr now in agreement with SNF. CM sent dtr a list of SNFs accepting covid positive pts. Dtr to discuss with brother and let CM know which facility they would like. Therapies to see. Plan CT of head.
[2020-11-01 20:37] VITALS: BP 96/53
[2020-11-02] VITALS: BP 112/57
--- NOTE | 2020-11-02 05:27 | NUR ---
PT CONFUSED, ANXIOUS ABOUT PROCEDURE THIS MORNING. SHE REFUSES WATER AND WANTS HER MEDS CRUSHED WITH PEPSI. SHE IS USING BEDPAN IN BED BUT DOES NOT ASSIST WITH MOVING VERY WELL. NOT EATING MUCH ALSO. ON 2L-O2 NC FOR THE NIGHT.
[2020-11-02 06:58] LABS: ABSOLUTE LYMPHOCYTES 0.7 thou/uL (0.8-5.3); ABSOLUTE MONOCYTES 0.9 thou/uL (0.0-1.2); ABSOLUTE NEUTROPHILS 8.6 thou/uL (1.6-8.1); BASOPHILS 0.1 %; HEMATOCRIT 37.8 % (37.0-47.0); HEMOGLOBIN 12.2 gm/dL (12.0-15.0); LYMPHOCYTES 6.5 %; MCH 27.1 pg (26.0-34.0); MCHC 32.2 g/dL (28.0-37.0); MCV 84.2 fL (80.0-100.0); MONOCYTES 8.6 %; MPV 8.4 fl. (7.2-11.1); NUCLEATED RBCS 1 /100WBC; PLATELET COUNT* 173 thou/uL (150-400); POLYS 84.8 %; RBC 4.49 mil/uL (4.20-5.00); WBC 10.1 thou/uL (4.0-11.0)
[2020-11-02 07:08] LABS: CALCIUM 8.2 mg/dL (8.5-10.1); CREATININE 0.7 mg/dL (0.6-1.3); POTASSIUM 3.6 mmol/L (3.5-5.1)
[2020-11-02 07:37] VITALS: BP 154/98
[2020-11-02 13:30] VITALS: BP 135/58
--- NOTE | 2020-11-02 15:08 | NUR ---
Pt out of covid iso, CM await rapid covid to determine if Pt will need a covid skilled vs non covid skilled. Rapid covid ordered. GI to see outpt for EGD. Pt med stable to dc. Family in agreement with [facility] if covid unit is required. Following.
--- NOTE | 2020-11-02 16:05 | NUR ---
WOUND NURSE: PATIENT SEEN FOR FOLLOW UP ASSESSMENT OF LLE WOUND. CURRENTLY MEASURES 7.0 X 5.5 X 0.2. SLIGHTLY UNDERMINED CHRISTIANO THE POSTERIOR EDGE. CONTAINS RED, NONGRANULATING TISSUE IN THE WOUND BED. SMALL AMOUNT OF SLIMY REDDISH DRAINAGE ON THE OLD DRESSING. PERIWOUND REDNESS UNDER THE FOAM DISSIPATED WITHIN A FEW MINUTES. PATIENT WITH POS C&S AND THIS WAS REPORTED TO DR. GRACE. CHANGED DRESSING PROCEDURE FOR WOUND SINCE INSIGNIFICANT CHANGEIN WOUND CHARACTERISTICS. PATIENT WITH PAIN TO TOUCH ONLY. WOUND CARE PROVIDED PRESCRIBED. REINSTRUCTED ON NUTRITIONAL NEEDS TO PROMOTE HEALING. PATIETN IS RESISTENT TO THE TEACHING.
--- NOTE | 2020-11-02 19:00 | NUR ---
Pt had swallow eval (barium/video) and is now on pureed diet with thin liquids/no straws. Pt has poor po intake (and was NPO until after swallow eval this afternoon). Pt alert, oriented to self, place and situation; but forgetful. Pt reports she had a white cloud systems architect when she was in the other room on [facility], but it is not in her room now. Checked with [facility], Environmental Services, and Security but no cloud systems architect found. Pt's dtr is aware of cloud systems architect now missing. She expressed concern and disappointment with it being missing, but we were able to get a compatible cloud systems architect in pt's room so her phone can charge. VSS. Using bedpan for voiding. Will continue to monitor.
[2020-11-02 19:11] VITALS: BP 155/71
[2020-11-02 20:00] VITALS: BP 154/76
[2020-11-03 02:28] VITALS: BP 153/77
[2020-11-03 04:40] VITALS: BP 152/72
[2020-11-03 08:05] VITALS: BP 135/51
--- NOTE | 2020-11-03 10:45 | NUR ---
WOUND NURSE: PATIENT SEEN TO CHECK ON LLE DRESSING AND IT REMAINS IN PLACE WITHOUT COMPLICATING FACTORS IDENTIFIED. WILL SEE TOMORROW FOR DRESSING CHANGE.
[2020-11-03 12:00] VITALS: BP 113/52
--- NOTE | 2020-11-03 17:00 | NUR ---
CM faxed referrals to both [facility] and [facility], await decision to accept and insurance auth. PT/OT to see.
[2020-11-04 00:25] VITALS: BP 157/57
[2020-11-04 01:42] VITALS: BP 155/64
[2020-11-04 05:26] VITALS: BP 129/67
[2020-11-04] MEDS ORDERED: PACERONE 200 M200 M1 PO ×2 (07:36→07:57)
[2020-11-04] MEDS ORDERED: PROTONIX40 M2 PO (07:36)
[2020-11-04] MEDS ORDERED: DEXAMETHASONE1 MG PO (07:38)
[2020-11-04 08:00] VITALS: BP 128/79
--- NOTE | 2020-11-04 08:44 | NUR ---
WOUND NURSE: PATIENT SEEN FOR DRESSING CHANGE AND FOLLOW UP ASSESSMENT. LEFT LATERAL LOWER LEG WOUND MEASURES 8.0 X 5.5 X 0.2 CM. CONTAINS 0.2 CM UNDERMINING ALONG THE POSTERIOR EDGE FROM 2 TO 5 O'CLOCK. SMOOTH RED, NONGRANULATING TISSUE IN THE WOUND BED. SEROUS DRAINAGE ON THE OLD DRESSING. SMALL AMOUNT OF SEROUSANGUINOUS DRANAGE AFTER CLEANSING WITH SOAP AND WATER, RINSED, THEN PATTED DRY. APPLIED MANUKA HONEY UNDER AQUACEL UNDER ABD, WRAPPED WITH KERLEX ROLL GAUZE UNDER JESSE WRAP. THIS WAS TOLERATED WELL BY THE PATIENT AND ONLY PAIN WITH CLEANSING AND QUICKLY SUBSIDED. PERIWOUND TISSUE IS WITHOUT REDNESS, WARMTH, OR INDURATION. PATIENT SCHEDULED TO BE SEEN IN THE OUTPATIENT WOUND CARE CENTER HERE NEXT WEEK. PATIENT WAS INSTRUCTED ACCORDINGLY AND STATES SHE UNDERSTANDS. THE WOUND WAS PHOTOGRAPHED BY THIS NURSE AND ADDED TO HER CHART.
[2020-11-04 11:37] LABS: HEMATOCRIT 37.5 % (37.0-47.0); HEMOGLOBIN 11.9 gm/dL (12.0-15.0); MCH 27.2 pg (26.0-34.0); MCHC 31.8 g/dL (28.0-37.0); MCV 85.5 fL (80.0-100.0); MPV 8.5 fl. (7.2-11.1); NUCLEATED RBCS 0 /100WBC; PLATELET COUNT* 197 thou/uL (150-400); RBC 4.38 mil/uL (4.20-5.00); RDW-CV 19.5 % (10.5-14.5)
[2020-11-04] MEDS ORDERED: ENTOCORT EC 3 MG3 MG PO (11:39)
[2020-11-04 12:00] VITALS: BP 162/52
[2020-11-04 12:01] LABS: ALBUMIN 2.5 g/dL (3.4-5.0); CREATININE 0.6 mg/dL (0.6-1.3); POTASSIUM 3.6 mmol/L (3.5-5.1); TOTAL BILIRUBIN 0.9 mg/dL (<0.1-1.0); TOTAL PROTEIN 5.7 g/dL (6.4-8.2)
[2020-11-04 12:02] LABS: ABSOLUTE LYMPHOCYTES 1.3 thou/uL (0.8-5.3); ABSOLUTE MONOCYTES 0.3 thou/uL (0.0-1.2); ABSOLUTE NEUTROPHILS 7.5 thou/uL (1.6-8.1); PLATELET ESTIMATE ADEQUATE
--- NOTE | 2020-11-04 15:56 | NUR ---
Pt discharging to [facility] today, facility to worm picker and transport at 5pm. Faxed dc orders and wound care notes. Updated Pt's dtr. Chart copied. Nurse report number is [phone]. Pt in agreement with POC
--- NOTE | 2020-11-04 18:23 | NUR ---
DISCHARGE: PT AND RN DISCUSSED THE DISCHARGE EDUCATION AND PT WAS ABLE TO VOICE HER CONCERNS AND ASK QUESTIONS. PICC LINE REMOVED PER PROTOCOL. PRESSURE AND OCCLUSIVE DRESSING IN PLACE. ALL PT BELONGINGS SENT WITH PT, CANDY, ASSISTANT TRACK AND FIELD COACH, CELL PHONE, CELL PHONE ASSISTANT TRACK AND FIELD COACH, PURSE, WOUND CARE SUPPLIES, AND SNACKS. PT LEFT IN THE PRESENCE OF THE TRANSFER PERSONNEL AT 1810.
--- NOTE | 2020-11-08 17:06 | PATH ---
[address] [address] PATHOLOGY RPT PROCEDURE Name: SAVANNA ANN Room: [address] IN M.R.#: [id number] Admission: 10/27/20 Date of : 40 Discharge: 11/04/20 Report #: [id number] Path Case #: [id number] [facility] Accession Number: [id number] . 01 Material submitted: . esophagus - ESOPHAGUS- R/O EOSINOPHILIC ESOPHAGITIS . 01 Clinical history: . COVID, TACHYCARDIA EGD IN OR . 02 Diagnosis: Esophagus: - Mild chronic and active esophagitis typical of reflux, negative for granulomas and significant eosinophilia. See comment. . (JUANPABLO:shannan; 11/08/2020) QL 11/08/2020 1247 Local . 02 Comment: Eosinophils are difficult to find, averaging less than 1/HPF and therefore eosinophilic (allergic) esophagitis is unlikely. . (JUANPABLO:mml; 11/08/2020) . 02 Electronically signed: . Jorge Messina MD, Pathologist NPI- [id number] . 01 Gross description: . Received in formalin labeled "Savanna Ann, esophagus rule out eosinophilic esophagitis" are multiple alston-brown soft tissue fragments measuring in aggregate 1.0 x 0.3 x 0.1 cm. The specimen is submitted entirely in A1. [place] [place] [facility] 11/06/2020 0905 Local . 02 Pathologist provided ICD-10: K20.90 . 02 CPT . 920512 Specimen Comment: A courtesy copy of this report has been sent to [phone], [phone] Specimen Comment: [phone], Specimen Comment: Report sent to Specimen Comment: Report sent to , DR DECKER / DR KENT Performed at: [address] [place] [address] PATHOLOGY RPT PROCEDURE Name: SAVANNA ANN Room: [address] IN M.R.#: [id number] Admission: 10/27/20 Date of : 40 Discharge: 11/04/20 Report #: [id number] Path Case #: [id number] [address], [place], [place] [id number] MD Johann Mejia MD Phone: [phone] Performed at: [address] [address] [address], [place], [place] [id number] MD Jorge Messina MD Phone: [phone]
== END 2020-11-04 19:03 | DRG 871 ==
LOC: M.ERS 10:14 → M.TBA-ER 11:52 → M.ORTHSURG 11:52 → M.2W 11-01 19:46
PROVIDERS: Emergency Medicine Emergency Medical Services; Internal Medicine; ADMIT Internal Medicine; ATTEND Internal Medicine
PROC: XW13325 Transfusion of Convalescent Plasma (Nonautologous) into Peripheral Vein, Percutaneous Approach, New Technology Group 5 (ICD-10-PCS; principal; 2020-10-27)
PROC: XW033E5 Introduction of Remdesivir Anti-infective into Peripheral Vein, Percutaneous Approach, New Technology Group 5 (ICD-10-PCS; principal; 2020-10-27)
PROC: 0D758ZZ Dilation of Esophagus, Via Natural or Artificial Opening Endoscopic (ICD-10-PCS; 2020-11-03)
PROC: 0DB58ZX Excision of Esophagus, Via Natural or Artificial Opening Endoscopic, Diagnostic (ICD-10-PCS; 2020-11-03)
DX: A41.89 Other specified sepsis (principal); J96.01 Acute respiratory failure with hypoxia; U07.1 COVID-19; J12.82 Pneumonia due to coronavirus disease 2019; E43 Unspecified severe protein-calorie malnutrition; I48.92 Unspecified atrial flutter; E87.0 Hyperosmolality and hypernatremia; Z68.1 Body mass index [BMI] 19.9 or less, adult; I73.9 Peripheral vascular disease, unspecified; R13.10 Dysphagia, unspecified; I35.0 Nonrheumatic aortic (valve) stenosis; I95.9 Hypotension, unspecified; E87.8 Other disorders of electrolyte and fluid balance, not elsewhere classified; E86.0 Dehydration; K22.2 Esophageal obstruction; I10 Essential (primary) hypertension; Z96.653 Presence of artificial knee joint, bilateral; S81.809A Unspecified open wound, unspecified lower leg, initial encounter; X58.XXXA Exposure to other specified factors, initial encounter; Z98.49 Cataract extraction status, unspecified eye; Z88.0 Allergy status to penicillin; Z88.2 Allergy status to sulfonamides; Z88.8 Allergy status to other drugs, medicaments and biological substances; Z88.6 Allergy status to analgesic agent; Z88.1 Allergy status to other antibiotic agents; Z91.041 Radiographic dye allergy status; Z91.040 Latex allergy status; Y93.89 Activity, other specified; Y92.89 Other specified places as the place of occurrence of the external cause; Y99.8 Other external cause status

== ENCOUNTER 2020-11-08 00:17 | Inpatient (IN) | payer OTHER ==
[~2020-11-08] VITALS: Ht 149.9 cm; Wt 46.7 kg
[~2020-11-08 00:17] MED LIST changes: +DEXAMETHASONE1 MG PO; +ENTOCORT EC 3 MG3 MG PO; +PACERONE 200 M200 M1 PO; +PROTONIX40 M2 PO
[2020-11-08 00:23] VITALS: BP 109/49
[2020-11-08 01:27] LABS: CALCIUM 7.9 mg/dL (8.5-10.1); CREATININE 0.5 mg/dL (0.6-1.3); POTASSIUM 3.7 mmol/L (3.5-5.1)
[2020-11-08 01:32] LABS: ALBUMIN 2.4 g/dL (3.4-5.0); MAGNESIUM 1.7 mg/dL (1.8-2.4); TOTAL BILIRUBIN 1.2 mg/dL (<0.1-1.0); TOTAL PROTEIN 5.4 g/dL (6.4-8.2)
[2020-11-08 02:36] LABS: HEMATOCRIT 41.3 % (37.0-47.0); HEMOGLOBIN 12.8 gm/dL (12.0-15.0); MCH 27.2 pg (26.0-34.0); MCV 87.6 fL (80.0-100.0); NUCLEATED RBCS 0 /100WBC; PLATELET COUNT* 81 thou/uL (150-400); RBC 4.71 mil/uL (4.20-5.00); RDW-CV 19.1 % (10.5-14.5); WBC 17.4 thou/uL (4.0-11.0)
[2020-11-08 03:04] LABS: BE 3.6 mmol/L (-2 to +3); PCO2 42.5 mmHg (35.0-45.0); PO2 66.8 mmHg (75.0-100.0); pH 7.439 (7.340-7.450)
[2020-11-08 03:21] LABS: URINE BLOOD TRACE (Negative); URINE CLARITY CLEAR; URINE COLOR YELLOW; URINE GLUCOSE-RANDOM NEGATIVE (Negative); URINE KETONES 2+ (Negative); URINE LEUKOCYTES-REFLEX 1+ (Negative); URINE NITRITE-REFLEX NEGATIVE (Negative); URINE PROTEIN TRACE (Negative); URINE SPECIFIC GRAVITY 1.025 (1.005-1.030)
[2020-11-08 03:24] LABS: ABSOLUTE EOSINOPHILS 0.2 thou/uL (0.0-0.7); ABSOLUTE LYMPHOCYTES 0.3 thou/uL (0.8-5.3); ABSOLUTE MONOCYTES 0.3 thou/uL (0.0-1.2); ABSOLUTE NEUTROPHILS 16.5 thou/uL (1.6-8.1); METAMYELOCYTES 1 %; PLATELET ESTIMATE DECREASED
[2020-11-08 03:26] LABS: ANISOCYTOSIS 1+
[2020-11-08 03:27] LABS: URINE BILIRUBIN 1+ (Negative)
[2020-11-08 03:28] LABS: ICTOTEST (BILI CONFIRMATORY) Negative (Negative)
[2020-11-08 03:34] LABS: CASTS None Seen /LPF (None Seen); SQUAMOUS >10 Many /LPF (0-3)
[2020-11-08 03:35] LABS: BACTERIA-REFLEX 1-9 Few /HPF (None Seen); URINE RBC 0-2 Rare /HPF (0-2)
[2020-11-08 03:36] LABS: CRYSTALS None Seen /LPF (None Seen)
[2020-11-08 09:32] VITALS: BP 109/60
[2020-11-08 11:55] VITALS: BP 99/51
--- NOTE | 2020-11-08 12:37 | NUR ---
CM SPK WITH PT BASSEMR, SKYLER, WHO INDICATED SHE SPK WITH [facility] TODAY AND THE PLAN FOR PT TO RTRN TO SNF. PT LIVES HOME ALONE, BUT HAS A GRANDDTR STAY WITH PT "OFF AND ON." PT USES A CANE PRN, HAS BEEN USING IT MORE D/T TO RECENT ILLNESS. PT HAS HX WITH [facility], PRIOR TO FIRST ADMISSION. CM TO CONT TO FOLLOW.
[2020-11-08 16:07] VITALS: BP 104/59
--- NOTE | 2020-11-08 17:45 | EKG ---
[place] [address] ELECTROCARDIOGRAM REPORT Name: BRYANESTEFANI LalaJOSIE Servin Room: [address] ADM IN .R.#: [id number] Admission: 11/08/20 Attend Phys: Suri Lynn, Discharge: Date of : 40 Date of Service: 11/08/20 0038 Report #: [id number] THIS REPORT FOR: //name// [facility] ED Test Date: 2020-11-08 Test Time: 00:38:34 Pat Name: JUANA ANN Department: Room: [facility] Gender: F Review Scheduling Coordinator: SOWMYA : 1940 Requested By: Ena Avila Order Number: [id number] MD: Yaakov Lugo Measurements Intervals [place] Rate: 59 P: 56 HI: 161 QRS: 174 QRSD: 139 T: -25 QT: 490 QTc: 486 Interpretive Statements Sinus rhythm Right bundle branch block Compared to ECG 10/31/2020 10:35:34 Atrial premature complex(es) no longer present Myocardial infarct finding no longer present Electronically Signed On 11-08-2020 17:44:51 CDT by Yaakov Lugo [email or web address] <ELECTRONICALLY SIGNED> By: Yaakov Lugo MD, FAC 11/08/20 1744 0038 0038 Yaakov Lugo MD, FAC /EPI
--- NOTE | 2020-11-08 18:44 | NUR ---
Pt admitted from ER. Has been very somnolent. Was given ativan, zofran, and phenergan in the early AM in ER. Mumbles response if spoken to loudly. No other interaction. Nurse spoke to son on the phone and he said he will be speaking to his sister about maybe changing Savanna's code status to DNR.
[2020-11-09] VITALS: BP 117/50
[2020-11-09 04:00] VITALS: BP 119/43
[2020-11-09 04:45] LABS: ABSOLUTE LYMPHOCYTES 0.5 thou/uL (0.8-5.3); ABSOLUTE MONOCYTES 0.3 thou/uL (0.0-1.2); ABSOLUTE NEUTROPHILS 12.2 thou/uL (1.6-8.1); HEMATOCRIT 32.1 % (37.0-47.0); LYMPHOCYTES 3.8 %; MCH 27.8 pg (26.0-34.0); MCHC 32.4 g/dL (28.0-37.0); MCV 85.7 fL (80.0-100.0); MONOCYTES 2.4 %; NUCLEATED RBCS 0 /100WBC; PLATELET COUNT* 81 thou/uL (150-400); POLYS 93.8 %; RBC 3.75 mil/uL (4.20-5.00); RDW-CV 18.8 % (10.5-14.5)
[2020-11-09 04:50] LABS: HEMOGLOBIN 10.4 gm/dL (12.0-15.0)
--- NOTE | 2020-11-09 04:57 | NUR ---
PATIENT SLEEPING MOST OF THE SHIFT; DIFFICULT TO WAKE. PO MEDS HELD FOR SAFETY. ANTIBIOTICS/FLUIDS INFUSING IN SUBCL CENTRAL LINE DOCUMENTED. PT SB WITH BBB ON CONTAINER WASHER. PT WITH LLE WOUND; DSG IN PLACE; PICTURE ON CHART. PT WITH PRAVO BOOTS IN PLACE. PT INCONTINENT OF BOWEL AND BLADDER. PT MUMBLES; DIFFICULT TO HEAR AND TO MAKE NEEDS KNOWN. PT A LITTLE MORE AWAKE THIS MORNING. SPOKE WITH DAUGHTER ABOUT PATIENT'S PLAN OF CARE LAST NIGHT. DAUGHTER REMAINS UNCLEAR OF PLAN OF CARE. PT TOLD WOULD PASS ON TO DAY SHIFT RN TO HAVE DR CALL DAUGHTER UPDATING HER ON PT. FREQUENTLY USED ITEMS AND CALL LIGHT WITHIN REACH. SIDERAILS UPX3 AND BED ALARM ON. WILL CONTINUE TO MONITOR.
[2020-11-09 08:00] VITALS: BP 128/48
[2020-11-09 08:04] VITALS: BP 128/48
[2020-11-09 11:01] LABS: ALBUMIN 1.9 g/dL (3.4-5.0); CALCIUM 7.4 mg/dL (8.5-10.1); CREATININE 0.6 mg/dL (0.6-1.3); POTASSIUM 3.2 mmol/L (3.5-5.1); TOTAL BILIRUBIN 0.6 mg/dL (<0.1-1.0); TOTAL PROTEIN 4.5 g/dL (6.4-8.2)
[2020-11-09 12:02] VITALS: BP 114/48
[2020-11-09 16:00] VITALS: BP 137/57
--- NOTE | 2020-11-09 16:00 | NUR ---
TERRAZZO TILE SETTER TRACKING WITH NO CHANGE IN RHYTHM. POOR DIETARY INTAKE - REPORTING HAVING DIFFICULTY SWALLOWING. PATIENT SEEN BY SPEECH THERAPY, ORDERS REEIVED FOR VIDEO SWALLOW. PATIENT AGREED TO HAVE VIDEO SWALLOW WITH LOTS OF ENCOURAGEMENT. WEAK COUGH, REPORTING FEELING NAUSEATED EARLIER GIVEN IV ZOFRAN REPORTING PARITAL RELIEF. ANXIOUS DURING SHIFT, REASSURANCE GIVEN. 02 REMAINS ON 3.5 LITERS. HOB ELEVATED, CALL LIGHT WITHIN REACH. FAMILY IN EARLIER TO VISIT. WILL CONTINUE WITH PLAN OF CARE.
[2020-11-10] VITALS: BP 157/67
[2020-11-10 04:00] VITALS: BP 123/71
[2020-11-10 04:52] LABS: ALBUMIN 1.9 g/dL (3.4-5.0); CALCIUM 7.6 mg/dL (8.5-10.1); CREATININE 0.6 mg/dL (0.6-1.3); MAGNESIUM 1.7 mg/dL (1.8-2.4); POTASSIUM 3.1 mmol/L (3.5-5.1); TOTAL BILIRUBIN 0.6 mg/dL (<0.1-1.0); TOTAL PROTEIN 4.8 g/dL (6.4-8.2)
[2020-11-10 04:53] LABS: MCH 27.6 pg (26.0-34.0); MCHC 32.3 g/dL (28.0-37.0); MCV 85.6 fL (80.0-100.0); RBC 3.62 mil/uL (4.20-5.00); RDW-CV 18.8 % (10.5-14.5)
[2020-11-10 08:00] VITALS: BP 120/79
--- NOTE | 2020-11-10 08:10 | NUR ---
WOUND NURSE: (LATE ENTRY FOR 11/09/20 @ 0900) PATIENT WAS SEEN TO ADDRESS WOUND ON THE LATERAL ASPECT OF THE LEFT LOWER EXTREMITY MEASURING 7.5 X 5.5 X 0.2 CM. ALSO CONTAINS UNDERMINING FROM 2 TO 5 O'CLOCK MEASURING 0.3 CM. PRESENTS WITH RED NONGRANULATING TISSUE IN THE WOUND BED AND MODERATE AMOUNT OF SEROUSANGUINOUS DRAINAGE. REMOVED PREVIOUS DRESSING AND CLEANSED WITH SOAP AND WATER, RINSED, THEN PATTED DRY. APPLIED THERAHONEY UNDER AQUACEL, COVERED WITH ABD, THEN WRAPPED WTIH KERLEX ROLL GAUZE UNDER JESSE WRAP FROM TOES TO KNEE. THIS WAS TOLERATED WELL BY THE PATIENT. PATIENT INSTRUCTED ON NUTRITIONAL NEEDS TO PROMOTE HEALING. STATES SHE UNDERSTANDS. PATIENT REPORTS SHE BELIEVES WOUND IS THE RESULT OF AN OLD SPIDER BITE FROM A YEAR AGO.
[2020-11-10 12:41] VITALS: BP 155/64
--- NOTE | 2020-11-10 12:52 | NUR ---
ASSUMED CARE OF PT AT 0730. PT A&0X3, FORGETFUL. DENIES ANY PAIN OR SHORTNESS OF BREATH AT THIS TIME. TRACING SR BBB ON THE PRIMER CHARGING TOOL SETTER. ON 3.5L NC SAT MID 90'S. PT UP WITH MAX ASSIST. PT GOAL FOR TODAY IS INCREASE ACTIVITY, TITRATE OXYGEN AND REPLACE POTASSIUM AND MAGNESIUM PER ELECTROLYTE PROTOCOL. AM ASSESSMENT CHARTED. MEDICATIONS PER MAR CRUSHED IN PUDDING. PT REPOSITIONED EVERY 2 HOURS FOR COMFORT. HOURLY ROUNDING OBSERVED. BED IN LOW POSITION. BED ALARM IN PLACE. FALL PRECAUTIONS IN PLACE. CALL LIGHT WITHIN REACH. WILL CONTINUE PLAN OF CARE.
[2020-11-10 16:00] VITALS: BP 108/52
[2020-11-11] VITALS: BP 132/69
[2020-11-11 04:00] VITALS: BP 155/71
[2020-11-11 05:12] LABS: HEMATOCRIT 34.1 % (37.0-47.0); MCH 27.9 pg (26.0-34.0); MCHC 32.2 g/dL (28.0-37.0); MCV 86.6 fL (80.0-100.0); MPV 8.9 fl. (7.2-11.1); RBC 3.94 mil/uL (4.20-5.00); RDW-CV 19.2 % (10.5-14.5); WBC 19.5 thou/uL (4.0-11.0)
[2020-11-11 05:32] LABS: ALBUMIN 2.1 g/dL (3.4-5.0); CALCIUM 8.1 mg/dL (8.5-10.1); CREATININE 0.6 mg/dL (0.6-1.3); MAGNESIUM 1.9 mg/dL (1.8-2.4); POTASSIUM 4.6 mmol/L (3.5-5.1); TOTAL BILIRUBIN 0.6 mg/dL (<0.1-1.0); TOTAL PROTEIN 5.1 g/dL (6.4-8.2)
[2020-11-11 08:50] VITALS: BP 73/40
--- NOTE | 2020-11-11 09:09 | NUR ---
PATIENT HAS SLEPT OFF AND ON DURING THE NIGHT. VSS ON 3.5L 02 VIA NASAL CANNULA. PO MEDS GIVEN WITH NECTAR THICKENED LIQUIDS. PUREWICK IN PLACE TO SUCTION. PATIENT PULLED OUT HER RIGHT SUBCLAVIAN TRIPLE LUMEN CENTRAL LINE. NEW IV INSERTED IN LEFT HAND. FALL PRECAUTIONS IN PLACE AND HOURLY ROUNDS MADE. WILL CONTINUE WITH PLAN OF CARE AND NURSING TO MONITOR.
[2020-11-11 12:37] VITALS: BP 112/38
--- NOTE | 2020-11-11 15:53 | NUR ---
PLAN OF CARE: PHYSICIAN INFORMS THAT THE PT MAY BE READY TO D/C OVER THE WEEKEND. CM CALLED TO F/U WITH [facility] AND THEY INFORM THAT THE WILL NOT HAVE A BED AVAILABLE FOR THE PT OVER THE WEEKEND. CM TO F/U WITH THE PT'S DTR TO DISCUSS THIS. CM WILL REMAIN AVAILABLE TO ASSIST AND FOLLOW NEEDED.
[2020-11-11 16:00] VITALS: BP 96/48
--- NOTE | 2020-11-11 18:37 | NUR ---
PATIENT HAS REMAINED A&OX4, WITH SOME FORGETFULNESS THIS SHIFT. MEDICATIONS ADMINISTERED ORDERED. PER DR. MALIK, HE WILL NOT PERFORM EGD PATIENT HAD PROCEDURE RECENTLY. PATIENT'S DAUGHTER AT BEDSIDE MOST OF SHIFT. PATIENT'S BIGGEST COMPLAINT IS NAUSEA; PRN ZOFRAN ADMINISTERED WITH COMPLETE RESULTS. PUREWICK IN PLACE FOR BLADDER INCONTINENCE. PATIENT PROVIDED WITH NECTAR THICKENED LIQUIDS AND PUREED SNACKS DURING SHIFT. CALL LIGHT AND FREQUENTLY USED ITEMS WITHIN REACH.
[2020-11-11 20:00] VITALS: BP 106/51
[2020-11-12] VITALS: BP 116/75
[2020-11-12 04:00] VITALS: BP 122/53
[2020-11-12 05:06] LABS: HEMATOCRIT 33.4 % (37.0-47.0); HEMOGLOBIN 10.7 gm/dL (12.0-15.0); MCH 27.7 pg (26.0-34.0); MCV 86.4 fL (80.0-100.0); MPV 9.1 fl. (7.2-11.1); NUCLEATED RBCS 0 /100WBC; PLATELET COUNT* 70 thou/uL (150-400); RBC 3.87 mil/uL (4.20-5.00); RDW-CV 19.3 % (10.5-14.5); WBC 15.7 thou/uL (4.0-11.0)
[2020-11-12 05:45] LABS: ALBUMIN 1.9 g/dL (3.4-5.0); CALCIUM 7.7 mg/dL (8.5-10.1); CREATININE 0.6 mg/dL (0.6-1.3); POTASSIUM 4.3 mmol/L (3.5-5.1); TOTAL BILIRUBIN 0.7 mg/dL (<0.1-1.0); TOTAL PROTEIN 4.8 g/dL (6.4-8.2)
[2020-11-12 06:44] LABS: PREALBUMIN 14.1 mg/dL (18.0-35.7)
[2020-11-12 08:30] VITALS: BP 99/36
[2020-11-12 09:20] LABS: ABSOLUTE LYMPHOCYTES 0.3 thou/uL (0.8-5.3); ABSOLUTE MONOCYTES 0.6 thou/uL (0.0-1.2); ABSOLUTE NEUTROPHILS 14.8 thou/uL (1.6-8.1); ANISOCYTOSIS 1+; PLATELET ESTIMATE DECREASED
[2020-11-12 12:00] VITALS: BP 76/52
[2020-11-12 16:00] VITALS: BP 143/59
--- NOTE | 2020-11-12 17:54 | NUR ---
Daughter flavia requests to be notified before patient is discharged. She would prefer [facility] instead of [facility]. She realizes that bed availability may play into this. Dtr has not been happy with [facility]. "They don't answer the phones." "They let her decide what to do" meaning if she won't take her meds or eat/drink they let her but then she'll be back in the hospital.
--- NOTE | 2020-11-12 18:20 | NUR ---
Pt has expressed depressive thoughts. Says that she thinks she might not make it. Nauseated much of the day. Spitting up mucus. Given zofran. Had one episode of blood-tinged sputum. Physician notified. Vital signs stable. Pt encouraged to watch television rather than stare at the wall. Daughter present for some of the afternoon.
[2020-11-12 19:40] VITALS: BP 126/59
[2020-11-13] VITALS: BP 144/63
--- NOTE | 2020-11-13 02:32 | NUR ---
ASSUMED CARE OF PT AT 1900. PT IS ALERT AND OREINTED. VSS. PERRANAI. WIYOT. PT IS IN SINUS RYTHM ON THE TELEMETRY. PT IS RESTING COMFORTABLY IN BED. RESPIRATIONS ARE EVEN AND NONLABORED. WILL CONTINUE TO MONITOR PT.
[2020-11-13 04:00] VITALS: BP 123/60
[2020-11-13 08:30] VITALS: BP 109/59
[2020-11-13 12:00] VITALS: BP 96/56
[2020-11-13 16:00] VITALS: BP 130/50
--- NOTE | 2020-11-13 17:09 | NUR ---
PT HAS BEEN VERY DESPONDENT. ATE A SMALL AMOUNT OF MILKSHAKE WITH DAUGHTER AND A SMALL AMOUNT OF JELL-O WITH NURSE. ABLE TO SWALLOW, BUT SPITS UP MUCUS WITH TINGES OF JELLO OR MILKSHAKE AND BELIEVES THAT SHE IS VOMITING BLOOD. GIVEN ZOFRAN TWICE.
[2020-11-13 19:20] VITALS: BP 120/69
[2020-11-13 22:06] LABS: ABSOLUTE LYMPHOCYTES 0.6 thou/uL (0.8-5.3); ABSOLUTE MONOCYTES 0.4 thou/uL (0.0-1.2); ABSOLUTE NEUTROPHILS 12.8 thou/uL (1.6-8.1); BASOPHILS 0.3 %; HEMATOCRIT 34.3 % (37.0-47.0); LYMPHOCYTES 4.1 %; MCH 27.7 pg (26.0-34.0); MCHC 32.1 g/dL (28.0-37.0); MCV 86.3 fL (80.0-100.0); MONOCYTES 2.7 %; MPV 8.6 fl. (7.2-11.1); NUCLEATED RBCS 0 /100WBC; PLATELET COUNT* 69 thou/uL (150-400); POLYS 92.9 %; RBC 3.98 mil/uL (4.20-5.00); RDW-CV 18.8 % (10.5-14.5); WBC 13.8 thou/uL (4.0-11.0)
[2020-11-13 22:21] LABS: ALBUMIN 1.8 g/dL (3.4-5.0); CALCIUM 7.8 mg/dL (8.5-10.1); CREATININE 0.6 mg/dL (0.6-1.3); POTASSIUM 3.7 mmol/L (3.5-5.1); TOTAL BILIRUBIN 0.7 mg/dL (<0.1-1.0); TOTAL PROTEIN 5.1 g/dL (6.4-8.2)
[2020-11-14] VITALS: BP 110/42
--- NOTE | 2020-11-14 01:07 | NUR ---
ASSUMED CARE OF PT AT 1900. PT IS ALERT AND ORIENTED. VSS. PERRLA. NO COMPLAINTS OF PAIN. PT REPORTED NAUSEA AT THE BEGINNING OF THE SHIFT. PT IS IN SINUS RYTHM WITH A BUNDLE BRANCH BLOCK. PT IS SLEEPING QUIETLY IN BED. RESPIRATIONS ARE EVEN AND NONLABORED. WILL CONTINUE TO MONITOR PT.
[2020-11-14 04:13] LABS: ABSOLUTE BASOPHILS 0.1 thou/uL (0.0-0.2); ABSOLUTE LYMPHOCYTES 0.5 thou/uL (0.8-5.3); ABSOLUTE MONOCYTES 0.3 thou/uL (0.0-1.2); ABSOLUTE NEUTROPHILS 14.6 thou/uL (1.6-8.1); BASOPHILS 0.4 %; EOSINOPHILS 0.2 %; HEMATOCRIT 34.3 % (37.0-47.0); HEMOGLOBIN 10.8 gm/dL (12.0-15.0); LYMPHOCYTES 3.3 %; MCHC 31.4 g/dL (28.0-37.0); MCV 85.9 fL (80.0-100.0); MONOCYTES 2.1 %; MPV 8.7 fl. (7.2-11.1); NUCLEATED RBCS 0 /100WBC; PLATELET COUNT* 75 thou/uL (150-400); RDW-CV 18.9 % (10.5-14.5); WBC 15.5 thou/uL (4.0-11.0)
[2020-11-14 04:42] VITALS: BP 100/50
[2020-11-14 04:45] LABS: ALBUMIN 1.8 g/dL (3.4-5.0); CALCIUM 7.8 mg/dL (8.5-10.1); CREATININE 0.4 mg/dL (0.6-1.3); POTASSIUM 3.5 mmol/L (3.5-5.1); TOTAL BILIRUBIN 0.8 mg/dL (<0.1-1.0)
[2020-11-14 08:15] VITALS: BP 117/59
[2020-11-14 11:30] VITALS: BP 118/66
--- NOTE | 2020-11-14 13:56 | NUR ---
PLAN OF CARE: PHYSICIAN INFORMS OF PLAN TO DISUSS PLAN OF CARE AND PROGNOSIS WITH PT AND HER DTR. PT'S DTR INFORMS OF PLAN TO HAVE PT D/C TO [facility]. PT MAY BE READY TO D/C TOMORROW. GISELE SMART VISITED PT TO COMPLETE ON-SITE ASSESSMENT. CM AWAITING [place] TO DISCUSS ABILITY TO ACCEPT PT TO SNF. CM WILL REMAIN AVAILABLE TO ASSIST AND FOLLOW NEEDED.
[2020-11-14 16:00] VITALS: BP 134/61
[2020-11-14 20:20] VITALS: BP 113/55
[2020-11-15] VITALS: BP 114/88
[2020-11-15 04:00] VITALS: BP 88/55
[2020-11-15 07:45] VITALS: BP 117/52
[2020-11-15 08:10] VITALS: BP 88/55
[2020-11-15 08:18] LABS: HEMATOCRIT 33.9 % (37.0-47.0); HEMOGLOBIN 11.1 gm/dL (12.0-15.0); MCH 28.2 pg (26.0-34.0); MCHC 32.8 g/dL (28.0-37.0); MCV 85.9 fL (80.0-100.0); MPV 10.1 fl. (7.2-11.1); NUCLEATED RBCS 0 /100WBC; PLATELET COUNT* 97 thou/uL (150-400); RBC 3.95 mil/uL (4.20-5.00); RDW-CV 18.7 % (10.5-14.5); WBC 15.7 thou/uL (4.0-11.0)
--- NOTE | 2020-11-15 08:36 | NUR ---
PATIENT HAS SLEPT OFF AND ON DURING THE NIGHT. VSS ON 3.5 L O2, ALTHOUGH BP LOW AT [address] KENT NOTIFIED OF LOW BP. NO NEW ORDERS RECEIVED. PATIENT GIVEN ZOFRAN FOR C/O NAUSEA. PATIENT STILL SPITTING SMALL AMOUNTS OF MUCOUS UP IN KLEENEX. IV IN LEFT HAND-D5W @ 50ML/HR. PUREWICK IN PLACE WITH DARK YELLOW URINE OUTPUT. SPOKE WITH DAUGHTER ON PHONE REGARDING MOTHERS STATUS DURING MUTUAL FUNDS AGENT. FALL PRECAUTIONS IN PLACE AND HOURLY ROUNDS MADE. WILL CONTINUE WITH PLAN OF CARE AND NURSING TO MONITOR.
[2020-11-15 08:39] LABS: ALBUMIN 1.9 g/dL (3.4-5.0); CALCIUM 7.7 mg/dL (8.5-10.1); CREATININE 0.6 mg/dL (0.6-1.3); TOTAL BILIRUBIN 0.9 mg/dL (<0.1-1.0)
[2020-11-15 08:41] LABS: POTASSIUM 2.9 mmol/L (3.5-5.1)
[2020-11-15 09:03] LABS: ABSOLUTE LYMPHOCYTES 1.1 thou/uL (0.8-5.3); ABSOLUTE MONOCYTES 0.5 thou/uL (0.0-1.2); ABSOLUTE NEUTROPHILS 14.1 thou/uL (1.6-8.1); PLATELET ESTIMATE DECREASED
[2020-11-15 09:04] LABS: ANISOCYTOSIS 1+; POIKILOCYTOSIS 1+
[2020-11-15 12:00] VITALS: BP 102/40
--- NOTE | 2020-11-15 14:26 | NUR ---
PLAN OF CARE: PHYSICIAN INFORMS OF GI CONSULT FOR POSSIBLE FEEDING TUBE. GI CONSULT AND RECOMMENDATIONS PENDING. PHYSICIAN INFORMS THAT D/C PLAN IS PENDING GI AND POSSIBLY 24-48 HOURS NEEDED TO DETERMINE POC. CM SPOKE TO JIM SMART PER PT'S DTR'S REQUEST AND ACCEPTANCE IS PENDING. CM WILL REMAIN AVAILABLE TO ASSIST AND FOLLOW NEEDED.
--- NOTE | 2020-11-15 15:00 | NUR ---
WOUND NURSE: PATIENT SEEN FOR FOLLOW UP WOUND ASSESSMENT. LLE WOUND NOW MEASURES 5.2 X 4.0 X 0.1 CM. PREVIOUS UNDERMINING IS RESOLVED. REMAINS WITH RED, NONGRANULATING TISSUE IN THE WOUND BED. SMALL AMOUNT OF SEROUSANGUINOUS DRAINAGE NOTED. NO PERIWOUND REDNESS, WARMTH, OR INDURATION. SIGNIFICANT IMPROVEMENT OVER THE PAST WEEK. PATIENT WITH SUSPECT DEEP TISSUE INJURY ON SACRUM. WILL REQUEST MALLIKA MATTRESS TO HELP OFFLOAD. PATIENT INSTRUCTED ON NEED TO OFFLOAD WOUND BY REPOSITIONING FROM SIDE TO SIDE. PATIENT STATES SHE UNDERSTANDS.
[2020-11-15 16:00] VITALS: BP 94/51
[2020-11-16] VITALS (7 sets, daily range): BP systolic 80–168; BP diastolic 42–64
--- NOTE | 2020-11-16 15:31 | NUR ---
PLAN OF CARE: PHYSICIAN INFORMS OF PT AND DTR'S REQUEST FOR HOSPICE AT HOME. CM SPOKE TO THE PT, DTR AND SON TO DISUCSS THIS AND ALL ARE IN AGREEMENT WITH PLAN FOR PT TO D/C HOME WITH HOSPICE. PT AND FAMILY CHOSE [facility]. CM CALLED AND FAXED PT'S CLINICAL INFO AND AWAITING CALLBACK. PLAN FOR PT'S FAMILY TO WORK ON [facility], AND DME WITH FAMILY TODAY. CM ASSISTED PT WITH COMPLETING DPOA FOR HEALTHCARE FORM AND [facility] DNR FORM. COPIES PLACED ON CHART AND FAXED TO [facility]. CM WILL REMAIN AVAILABLE TO ASSIST AND FOLLOW NEEDED.
[2020-11-17 00:08] VITALS: BP 114/56
[2020-11-17 04:01] VITALS: BP 150/64
[2020-11-17 08:05] VITALS: BP 116/57
--- NOTE | 2020-11-17 09:23 | NUR ---
PT ALERT ORIENTED. PT REQUESTING IV PAIN MEDICATION BC IT IS TO DIFFICULT TO SWALLOW. MORPHINE IV GIVEN. PT MUCH MORE COMFORTABLE.
--- NOTE | 2020-11-17 11:22 | NUR ---
WOUND NURSE: PATIENT SEEN THIS MORNING TO REASSESS LEFT LATERAL LOWER EXTREMITY WOUND. MEASURES SMALLER THAN PREVIOUS MEASUREMENT. PALE YELLOW DRAINAGE IN SMALL TO MODERATE AMOUNT. NEW EPITHELIZATION ALONG THE WOUND EDGES, NO UNDERMINING. PINK TO RED NONGRANULATING TISSUE IN HE WOUND BED. NO PERIWOUND REDNESS, WARMTH, OR INDURATION PRESENT. DRESSING CHANGED PRESCRIBED AND WOUND PHOTOGRAPHED IN CASE SHE DISCHARGES TODAY.
[2020-11-17 12:04] VITALS: BP 108/52
--- NOTE | 2020-11-17 13:57 | NUR ---
PLAN FOR TO TO D/C HOME TODAY WITH DTR AND [facility] PER PT AND FAMILY REQUEST. [facility] AND WILL MEET PT AT THE HOME AT D/C. [facility] NON-EMERGENT TRANSPORT ARRANGED FOR 1400. RN INFORMED AND IN AGREEMENT. CM WILL REMAIN AVAILABLE TO ASSIST AND FOLLOW NEEDED. [facility] PHONE: [phone]
[2020-11-17 14:18] VITALS: BP 108/52
== END 2020-11-17 14:20 | disposition hospice, home (50) | DRG 177 ==
LOC: M.ERS 00:17 → M.TBA-ER 05:32 → M.2W 09:03
PROVIDERS: Internal Medicine; Personal Emergency Response Attendant; ADMIT Internal Medicine; ATTEND Internal Medicine
DX: J69.0 Pneumonitis due to inhalation of food and vomit (principal); J96.01 Acute respiratory failure with hypoxia; E43 Unspecified severe protein-calorie malnutrition; I48.92 Unspecified atrial flutter; L03.116 Cellulitis of left lower limb; L03.115 Cellulitis of right lower limb; I10 Essential (primary) hypertension; Z96.653 Presence of artificial knee joint, bilateral; I73.9 Peripheral vascular disease, unspecified; E86.0 Dehydration; D69.6 Thrombocytopenia, unspecified; D72.829 Elevated white blood cell count, unspecified; S81.802A Unspecified open wound, left lower leg, initial encounter; S81.801A Unspecified open wound, right lower leg, initial encounter; R13.10 Dysphagia, unspecified; Z51.5 Encounter for palliative care; Z98.49 Cataract extraction status, unspecified eye; Z86.16 Personal history of COVID-19; Z88.0 Allergy status to penicillin; Z88.2 Allergy status to sulfonamides; Z88.8 Allergy status to other drugs, medicaments and biological substances; Z88.6 Allergy status to analgesic agent; Z88.1 Allergy status to other antibiotic agents; Z91.040 Latex allergy status; X58.XXXA Exposure to other specified factors, initial encounter; Y93.89 Activity, other specified; Y92.89 Other specified places as the place of occurrence of the external cause; Y99.8 Other external cause status; Z79.82 Long term (current) use of aspirin; Z79.899 Other long term (current) drug therapy; Z68.20 Body mass index [BMI] 20.0-20.9, adult; Z20.822 Contact with and (suspected) exposure to COVID-19